=== PATIENT | male | born 1995 | race African-American/Black ===

== ENCOUNTER 2020-02-15 11:36 | Emergency (ER) | payer OTHER, SELFPAY ==
[2020-02-15] MEDS ORDERED: Succinylcholine 200 MG/10 ml SYRINGE FS ONE (11:38)
[2020-02-15] MEDS ORDERED: Boostrix 0.5 ML (Tdap) VIAL ONE (11:38)
[2020-02-15] MEDS ORDERED: Propofol 1,000 MG/100 ML VIAL IV ONE (11:41)
[2020-02-15] MEDS ORDERED: Lidocaine 1% w/Epinephrine 1:100K 20 ML VIAL ONE (12:01)
[2020-02-15 12:03] LABS: #Basophils 0.1 thou/uL (0.0-0.2); #Monocytes 0.8 thou/uL (0.11-0.59); #Neutrophils 9.8 thou/uL (1.40-6.50); %Basophils 0.8 % (0.0-1.0); %Eosinophils 0.1 % (0.0-10.0); %Lymphocytes 15.5 % (21.0-51.0); %Neutrophils 77.7 % (42.0-75.0); Mean Corpuscular HGB CONC 33.9 g/dL (32.0-36.0); Mean Corpuscular Hemoglobin 33.7 pg (27.0-31.0); Mean Corpuscular Volume 99.3 fL (78.0-98.0); Mean Platelet Volume 10.8 fL (7.4-10.4); Platelet Count 149 thou/uL (130-400); RBC Distribution Width 11.7 % (11.5-14.5); Red Blood Cell (RBC) Count 4.46 mill/uL (4.70-6.10); White Blood Cell (WBC) Count 12.7 thou/uL (4.8-10.8)
--- NOTE | 2020-02-15 12:05 | RAD ---
EXAM: XR Chest 1 View Portable PROVIDED CLINICAL HISTORY: Respiratory insufficiency COMPARISON: None FINDINGS: Cardiac and mediastinal silhouette is within normal limits. Endotracheal tube is demonstrated, tip of which overlies the expected region of the thoracic inlet. Enteric catheter is noted, tip of which overlies left upper quadrant. The supine nature the study is not sensitive for detection of pleural f luid or pneumothorax, without definite evidence for such. The left costophrenic angle is incompletely included. The lungs appear clear. The bony thorax appears grossly intact. IMPRESSION: Support apparatus as described.
[2020-02-15 12:06] LABS: Actual Bicarbonate (HCO3a) 21.3 mEq/L (22-28); Base Excess (BEa) -3.4 mEq/L (-2.0 to +3.0); CO2 Tension 37.3 mmHg (35.0-45.0); Carboxyhemoglobin (COHb) 0.3 gm% (0.0-3.0); Hemoglobin (Hb) 13.2 g/dL (14.0-18.0); O2 Tension (PaO2), arterial 167.3 mmHg (80.0-100.0); pH, Arterial 7.37 (7.35-7.45)
[2020-02-15 12:07] LABS: Calcium, Ionized (arterial) 1.11 mmol/L (1.12-1.30); Potassium - ABG Lab 3.44 mmol/L (3.70-5.30)
[2020-02-15 12:07] LABS: INR-International Normal Ratio 1.1; PTT 31.4 sec (22.9-36.1); Prothrombin Time 14.1 sec (12.0-14.7)
[2020-02-15 12:11] LABS: ALV-art Gradient 71.275 mmHg (0-20); Puncture Site LRA
[2020-02-15 12:13] LABS: ALT (SGPT) 26 U/L (8-55); AST (SGOT) 43 U/L (5-34); Alkaline Phosphatase 61 U/L (40-110); Anion Gap 22 mmol/L (10-20); BUN (Urea Nitrogen) 25 mg/dL (8.9-20.6); Calc. Creatinine Clearance 0 mL/min (70-130); Calcium 9.9 mg/dL (7.8-10.44); Carbon Dioxide 23 mmol/L (22-29); Chloride 101 mmol/L (98-107); Globulin 4.2 g/dL (2.4-3.5); Glucose 93 mg/dL (70-105); Potassium 3.8 mmol/L (3.5-5.1); Protein, Total 9.2 g/dL (6.0-8.3); Sodium 142 mmol/L (136-145)
[2020-02-15 12:17] LABS: Acetaminophen Less than 6.0 mcg/mL (10.0-30.0); Alcohol Less than 10 mg/dL (Less than 10); Salicylate Less than 8.0 mg/dL (15.0-30.0)
--- NOTE | 2020-02-15 12:20 | RAD ---
Exam: XR Femur Rt Ltd Survey HISTORY: Trauma. Puncture wound to right lower extremity. COMPARISON: None FINDINGS: AP view of the mid and distal femur are obtained. The right hip is not imaged on this exam. At level of imaging, no radiopaque foreign body is seen. Visualized osseous structures appear intact without a fracture. IMPRESSION: Incomplete imaging right femur. However, the visualized portion of the femur demonstrates no displace d fracture. No radiopaque foreign body is appreciated.
--- NOTE | 2020-02-15 12:39 | OP ---
DATE OF PROCEDURE: 02/15/2020 PREOPERATIVE DIAGNOSIS: 8 cm vertical laceration, distal right thigh. POSTOPERATIVE DIAGNOSIS: 8 cm vertical laceration, distal right thigh. PROCEDURE PERFORMED: Repair of 8 cm anterior distal right thigh laceration. ANESTHESIA: Deep sedation and local. INDICATIONS FOR PROCEDURE: A 24-year-old man suffered penetrating trauma to the distal right thigh resulting in 8 cm full-thickness laceration down to the bone. Following exclusion of vascular injury and any bony injuries, the decision was made to close the wound. DESCRIPTION OF PROCEDURE: The patient was placed in supine position. He was already intubated to control his airway and to facilitate timely workup due to profound agitation. The right leg wound was evaluated, and then sterilely prepped and draped in usual fashion. The wound was copiously irrigated with 1500 mL of sterile saline. Deep tissues were approximated using interrupted sutures of 2-0 Vicryl. Skin incision was closed using miguel. Sterile dressings were applied. The patient tolerated the procedure without any apparent complication and remains hemodynamically stable following completion of procedure. Finding no other injuries, the patient will be weaned and extubated and likely discharged from emergency department. Job ID: [id number]
[2020-02-15 12:42] LABS: Bilirubin Negative (Negative); Blood, Urine Negative (Negative); Clarity Extra Turbid (Clear); Glucose, Urine (Dipstick) Normal (Negative); Ketone, Urine 40 mg/dL (Negative); Leukocyte Negative Leu/uL (Negative); Nitrite Negative (Negative); Protein, Urine (Dipstick) 70 mg/dL (Neg-Trace); Specific Gravity, Urine 1.034 (1.002-1.036); Squamous Epithelial 0-3 HPF (0-3); Urobilinogen Normal mg/dL (Less than 2)
[2020-02-15 12:44] LABS: Amphetamine Detected (NotDetected); Cocaine Metabolite Screen Not Detected (NotDetected); Medtox Reader # READER 1; Opiate Screen Not Detected (NotDetected); Phencyclidine (PCP) Not Detected (NotDetected); THC/Cannabinoid Screen Detected (NotDetected)
[2020-02-15 12:45] LABS: Barbiturates Screen Not Detected (NotDetected); Benzodiazepine Screen Not Detected (NotDetected); Methadone Not Detected (NotDetected); Methamphetamine Detected (NotDetected); Tricyclic Screen Not Detected (NotDetected)
[2020-02-15 12:46] LABS: Medtox Control Line Valid? VALID (VALID); Oxycodone Screen Not Detected (NotDetected)
[2020-02-15 12:54] LABS: Bacteria/HPF 1+ HPF (None Seen); Sperm/HPF None Seen HPF (None Seen)
--- NOTE | 2020-02-16 05:35 | HP ---
Of note: This is a Consult Note The patient was referred by the trauma system activation, critical care/trauma attending, Dr. Yoel Shah; emergency department physician is Dr. Ronquillo. HISTORY OF PRESENT ILLNESS: Mr. Harper is a 24-year-old male, brought in by EMS with accompany of [employer] as a level 1 trauma activation, status post penetrating trauma to the right lower extremity with a tourniquet in place. Reported to be normotensive. No blood loss noted on scene. Alert, oriented, in extreme pain. The patient has been given 1 g TXA as well as 100 mcg of fentanyl with minimal pain relief. Unknown etiology other than wounds noted to the right lower extremity for this current issue. Unknown time of occurrence. Evaluated the patient in the emergency department alongside Dr. Yoel Shah immediately on the patient's arrival. The patient's ABC's are intact. He has strong pulses, and he actually has pulses distal to the tourniquet in the right lower extremity. It is difficult to assess the patient as he is writhing on the bed, screaming, he is pulling away at any interventions. Therefore, he was intubated electively for further evaluation and management of his traumatic injuries. Please see the emergency department documentation. After patient was intubated, he was placed on sedation, confirmed ET tube placement. Airway was secured. Chest x-ray demonstrated no acute abnormalities. ET tube is above the gildardo, has an OG tube and decompressing the stomach. The patient had a full assessment. The only injury so far that has been noted is a laceration about the right distal thigh. The patient did not have any active bleeding when the tourniquet was removed. He has remained hemodynamically stable. His ABIs in that extremity were 1 to 1. Currently, the patient is on propofol at 30 per hour. He is also on assist-control ventilation. Complete head to toe was completed. REVIEW OF SYSTEMS: Somewhat limited by the patient's agitated state. The patient denies any other injury besides pain at his right lower extremity prior to intubation. PAST MEDICAL HISTORY: Largely unknown. MEDICATIONS: Unknown. ALLERGIES: UNKNOWN. SOCIAL HISTORY: Unknown. FAMILY HISTORY: Unknown. PHYSICAL EXAMINATION: VITAL SIGNS: Temperature, please see the trauma flow chart. Blood pressure; he has a systolic blood pressure in the 160s when it was first taken on arrival. His heart rate is 130, respiratory rate is 26, saturating 100% with oxygen prior to intubation. GENERAL: A 24-year-old male, in the [facility] somewhat extreme distress. He is not able to be coached and calmed at the bedside. HEENT: Normocephalic, atraumatic. Trachea is midline. No JVD is appreciated. RESPIRATORY: Equal rise and fall. Bilateral breath sounds. Clear to auscultation in upper and lower bilaterally once he is sedated and intubated. CARDIOVASCULAR: He was initially tachycardic. This is improving with sedation and intubation. He has a regular rhythm. Strong pulses in all extremities. ABDOMEN: Soft and nontender. No masses, guarding, or rigidity. No obvious trauma. Pelvis is stable. MUSCULOSKELETAL: Long bones do appear intact. He has good pulses in the distal extremities. He does have a laceration approximately 3-cm deep on the more lateral aspect of the right thigh approximately 5 cm proximal to the knee. SKIN: Skin has tattoos, but is warm and dry. Normal color for the ethnicity. PSYCH: He was impulsive and agitated initially, is now calm secondary to sedation. LABORATORY DATA: Has yet to return. Chest x-ray was reviewed, shows ET tube in appropriate position. NG tube in appropriate position. There is no pneumothorax. No evidence of chest trauma. X-ray of the femur and of the knee shows no bony abnormalities on preliminary review, waiting radiologist review. X-ray of the femur and the knee that no radiopaque foreign bodies were noted ASSESSMENT: 1. Laceration and injury. 2. Right lower extremity thigh wound. 3. Acute agitation. 4. Possible blood loss anemia. 5. Acute traumatic pain secondary to #1 above. PLAN: 1. The patient was evaluated in the [facility] by Dr. hSah, myself, and the emergency department physician. 2. ABC's were controlled. 3. Intubation as noted on the ER chart for extreme agitation. 4. Hemodynamic monitoring. 5. Full assessment including rolling to the back. No further injuries were identified. 6. The patient was sedated with propofol. 7. We will obtain labs and follow up on the same. 8. Primary closure of the wound. Please see separate documentation. 9. We will evaluate the patient TSB and see about extubation for further management. If the patient is able, we will consider discharge from the emergency department versus an inpatient stay. If there are further injuries identified or lab abnormalities, we will continue to follow up on the same. 10. Access of peripheral IV, 7.5 ET tube, an NG tube to low intermittent suction. 11. The patient was given 2 g of Ancef and Tdap. 12. Full code. 13. Prophylaxis; SCDs for now. We will add if needing further admission. Disposition is going to be rest. We will try to TSB today and evaluate further needs for admission to the hospital or other injuries. The patient was seen immediately by Dr. Yoel Shah as noted above. This plan could be updated as needed. For full vital signs, please see the trauma chart. Job ID: [id number] [id number]
== END 2020-02-15 18:40 | disposition home or self-care (01) ==
LOC: ERS 11:36 → EEVIPCON 11:36 → ERS 18:40
DX: S71.131A Puncture wound without foreign body, right thigh, initial encounter (principal); R41.82 Altered mental status, unspecified; R00.0 Tachycardia, unspecified
CPT/HCPCS: 31500; 36415; 36600; 51701; 71045; 80053; 80306; 80307; 81001; 82805; 83605; 85025; 85610; 85730; 86850; 86900; 86901; 90471; 90715; 96365; 96375; G0390; J0690; J2704